=== PATIENT | female | born 1980 | race Caucasian/White ===

== ENCOUNTER 2018-11-04 08:04 | Outpatient (CLI) | payer OTHER ==
--- NOTE | 2018-11-04 10:02 | ULT ---
LEFT BREAST ULTRASOUND: History: Palpable abnormality at 11:30 position left breast, 5 cm from the nipple. FINDINGS: Real-time imaging of the area of concern shows fairly dense breast tissue in this region. There is no cystic or solid mass. IMPRESSION: BIRADS category 2 - benign findings. POS: OFF
== END 2018-11-04 08:05 | disposition home or self-care (01) ==
LOC: BICMAMMO 08:04
PROVIDERS: ATTEND Family Medicine
DX: N63.21 Unspecified lump in the left breast, upper outer quadrant (principal)
CPT/HCPCS: 77066; G0279